=== PATIENT | male | born 1970 ===

== ENCOUNTER 2018-02-05 17:31 | Emergency (ER) | payer OTHER ==
[2018-02-05 17:58] VITALS: RESP 17; BMI 25.7
--- NOTE | 2018-02-05 18:04 | C.PDOC ---
History Of Present Illness 47 y/o male pt presents to the ER c/o dizziness. Associated sx includes nausea and intermittent headache for x1 week. Pt reports he took aspirin with mild relief. Pt denies trauma, chest pain, SOB, smoking or drinking. Time Seen by Provider: 02/05/18 17:46 Chief Complaint (Nursing): Dizziness/Lightheaded History Per: Patient History/Exam Limitations: no limitations Onset/Duration Of Symptoms: Days (x1 week), Waxing/Waning Past Medical History Reviewed: Historical Data, Nursing Documentation, Vital Signs Vital Signs: Last Vital Signs Temp 99.0 F 02/05/18 17:35 Pulse 68 02/05/18 17:35 Resp 17 02/05/18 17:35 BP 134/79 02/05/18 17:35 Pulse Ox 100 02/05/18 17:35 Surgical History: Appendectomy Family History: States: No Known Family Hx - Social History Hx Alcohol Use: No Hx Substance Use: No - Immunization History Hx Tetanus Toxoid Vaccination: No Hx Influenza Vaccination: No Hx Pneumococcal Vaccination: No Review Of Systems Except As Marked, All Systems Reviewed And Found Negative. Constitutional: Negative for: Other (trauma) Cardiovascular: Negative for: Chest Pain Respiratory: Negative for: Shortness of Breath Gastrointestinal: Positive for: Nausea Neurological: Positive for: Headache (intermittent), Dizziness Physical Exam - Physical Exam Appears: Non-toxic, No Acute Distress Skin: Warm, Dry Head: Normacephalic Eye(s): bilateral: Normal Inspection, PERRL, EOMI Chest: Symmetrical Cardiovascular: Rhythm Regular Respiratory: Normal Breath Sounds Back: Straight Leg Raising ((-) negative) Extremity: Normal ROM (x4), No Pedal Edema Neurological/Psych: Oriented x3, Normal Speech, Normal Cognition, Normal Motor, Normal Sensation, Normal Reflexes Gait: Steady ED Course And Treatment - Laboratory Results Result Diagrams: 02/05/18 18:13 02/05/18 18:13 O2 Sat by Pulse Oximetry: 100 (RA) Pulse Ox Interpretation: Normal Medical Decision Making Medical Decision Making: Impression: dizziness Plans: -- chem labs -- blood work -- CXR -- Antivert -- IV fluids -- UA Reassess: Pt is resting comfortably. Pt will be discharged and told to come back if symptoms worsens. Disposition - Disposition Referrals: [facility] at [facility] [place] [Outside] [facility] at [facility] [Outside] [facility] at [place] [Outside] Disposition: HOME/ ROUTINE Disposition Time: 19:05 Condition: IMPROVED Additional Instructions: Take Meclizine as directed and follow up with medicine clinic. Prescriptions: Meclizine [Meclizine*] 25 mg PO Q8 #15 tab Instructions: Dizziness, Nonvertigo, (DC) Forms: [employer] (Kiswahili) - Clinical Impression Clinical Impression: Dizziness - Scribe Statement The provider has reviewed the documentation as recorded by the Darian Ndiaye Do Provider Attestation: All medical record entries made by the Italiaibe were at my direction and personally dictated by me. I have reviewed the chart and agree that the record accurately reflects my personal performance of the history, physical exam, medical decision making, and the department course for this patient. I have also personally directed, reviewed, and agree with the discharge instructions and disposition.
[2018-02-05] MEDS ORDERED: Sodium Chloride 0.9% 1,000 ML IV ONE (18:05)
--- NOTE | 2018-02-05 18:05 | C.PDOC ---
Time Seen by Provider: 02/05/18 17:46 Chief Complaint (Nursing): Dizziness/Lightheaded Past Medical History Vital Signs: Last Vital Signs Temp 99.0 F 02/05/18 17:35 Pulse 68 02/05/18 17:35 Resp 17 02/05/18 17:35 BP 134/79 02/05/18 17:35 Pulse Ox 100 02/05/18 17:35 Surgical History: Appendectomy - Social History Hx Alcohol Use: No Hx Substance Use: No - Immunization History Hx Tetanus Toxoid Vaccination: No Hx Influenza Vaccination: No Hx Pneumococcal Vaccination: No ED Course And Treatment O2 Sat by Pulse Oximetry: 100 Disposition - Disposition
[2018-02-05] MEDS ORDERED: Sodium Chloride 0.9% 1,000 ML ONE (18:16)
[2018-02-05 18:18] LABS: BASO % 0.7 % (0.0-2.0); EOS % 0.6 % (0.0-4.0); LYMPH # 1.6 K/uL (1.0-4.3); LYMPH % 25.5 % (20.0-40.0); MEAN CELL VOLUME 93.6 fL (80.0-94.0); MEAN CORPUSCULAR HEMOGLOBIN 31.5 pg (27.0-31.0); MEAN CORPUSCULAR HGB CONC 33.7 g/dL (33.0-37.0); MEAN PLATELET VOLUME 9.6 fL (7.2-11.7); MONO # 0.5 K/uL (0.0-0.8); NEUT # 4.2 K/uL (1.8-7.0); NEUT % 65.2 % (50.0-75.0); RBC 4.43 Mil/uL (4.40-5.90); RED CELL DISTRIBUTION WIDTH 12.5 % (11.5-14.5); WHITE BLOOD COUNT 6.4 K/uL (4.8-10.8)
[2018-02-05 18:31] LABS: ALB/GLOB RATIO 1.3 (1.0-2.1); ALT/SGPT 26 U/L (21-72); AST/SGOT 25 U/L (17-59); BLOOD UREA NITROGEN 13 mg/dL (9-20); CALCIUM 8.7 mg/dl (8.6-10.4); GFR NON-AFRICAN AMERICAN > 60
[2018-02-05 18:34] LABS: SQUAMOUS EPITHIAL < 1 /hpf (0-5); URINE BILIRUBIN NEGATIVE (NEGATIVE); URINE BLOOD NEGATIVE (NEGATIVE); URINE CLARITY Clear (Clear); URINE COLOR Straw (YELLOW); URINE GLUCOSE (UA) NORMAL (Normal); URINE LEUKOCYTE ESTERASE 1+ Leu/uL (Negative); URINE PROTEIN NEGATIVE (NEGATIVE); URINE UROBILINOGEN NORMAL mg/dL (0.2-1.0)
[2018-02-05] MEDS ORDERED: Potassium Chloride 20 mEq ER Tab PO ONE (18:56)
[2018-02-05 19:07] VITALS: BP 125/74; PULSE 62; TEMP 98.2
--- NOTE | 2018-02-06 08:32 | RAD ---
Date of service: 02/05/2018 PROCEDURE: CHEST RADIOGRAPH, 1 VIEW HISTORY: dizziness COMPARISON: None available. FINDINGS: LUNGS: Clear. PLEURA: No pneumothorax or pleural fluid seen. CARDIOVASCULAR: No aortic atherosclerotic calcification present. Normal. OSSEOUS STRUCTURES: No significant abnormalities. VISUALIZED UPPER ABDOMEN: Normal. OTHER FINDINGS: None. IMPRESSION: No active disease.
[2018-02-06] MEDS ORDERED: Potassium Chloride 20 mEq ER Tab PO ONE (18:43)
[2018-02-11 10:12] VITALS: O2SAT 100
== END 2018-02-05 19:06 | disposition home or self-care (01) ==
LOC: C.ER 17:31
DX: R42 Dizziness and giddiness (principal)
CPT/HCPCS: 71045; 80053; 81001; 84484; 85025; 99285; J7030